=== PATIENT | female | born 1985 | race Caucasian/White ===

== ENCOUNTER 2020-07-20 18:50 | Emergency (ER) | payer OTHER, SELFPAY | END 2020-07-20 19:00 | disposition left against medical advice (07) | DX: Z53.21 Procedure and treatment not carried out due to patient leaving prior to being seen by health care provider (principal) | CPT/HCPCS: 99199 ==

== ENCOUNTER 2023-04-04 14:57 | Emergency (ER) | payer OTHER, SELFPAY ==
--- NOTE | ~2023-04-04 | US_ITS ---
EXAMINATION: US venous doppler LE RT DATE: 04/04/2023 18:35 INDICATION: pain, swelling . TECHNIQUE: Grayscale images without and with compression and Doppler images of the right lower extrem ity veins were obtained. COMPARISON: None FINDINGS: The right common femoral vein, profunda (deep) femoral vein, femoral vein, popliteal vein, peroneal v ein, posterior tibial veins, gastrocnemius vein, and greater saphenous vein are patent. IMPRESSION: Patent right lower extremity veins. No evidence of deep venous thrombosis. Reviewed, dictated and finalized at location K. NT CARE PHYSICIAN
--- NOTE | ~2023-04-04 | XR_ITS ---
EXAMINATION: XR chest 2V 04/04/2023 15:20 INDICATION: Chest pain PROCEDURE: 2 view chest COMPARISON: 10/04/2022 FINDINGS: The lungs are clear. The cardiomediastinal silhouette is within normal limits. There are no pleural effusions. There is no pneumothorax suspected. IMPRESSION: 1: NO ACUTE CARDIOPULMONARY DISEASE. Reviewed, dictated and finalized at location B. NICIAN TERMINAL AND REPEATER
--- NOTE | 2023-04-04 14:58 | ECG_ITS ---
Measurements Intervals [place] Rate: 86 P: 36 AL: 155 QRS: -9 QRSD: 102 T: 59 QT: 345 QTc: 413 Interpretive Statements SINUS RHYTHM NO PREVIOUS ECG AVAILABLE FOR COMPARISON Electronically Signed On 04-04-2023 21:07:[address] CAR INSPECTOR by Patricia Cerrato M.D.
[2023-04-04 15:02] VITALS: BP 146/98; PULSE 98; RESP 18; TEMP 36.9; O2SAT 100
[2023-04-04 15:15] LABS: Basophils Absolute Auto 0.1 K/mm3 (0.0-0.1); Basophils Percent Auto 0.5 % (0.2-1.2); Eosinophils Absolute Auto 0.1 K/mm3 (0-0.3); Eosinophils Percent Auto 1.5 % (0-4.4); Hematocrit 43.5 % (37.0-47.0); Immature Granulocyte Absolute 0.02 K/mm3 (0.00-0.031); Immature Granulocyte Percent A 0.2 % (0-0.5); Lymphocytes Absolute Auto 2.48 K/mm3 (0.9-3.2); Lymphocytes Percent Auto 27.1 % (18.3-44.2); Mean Corpuscular HGB Conc 32.2 g/dl (32-36); Mean Corpuscular Hemoglobin 30.1 pg (26-34); Mean Corpuscular Volume 93.5 fl (80-100); Mean Platelet Volume 9.5 fl (7.4-10.4); Monocytes Absolute Auto 0.5 K/mm3 (0.1-0.6); Monocytes Percent Auto 4.9 % (2.6-8.5); Neutrophils Percent Auto 65.8 % (45.5-73.1); Platelet Count Result 355 k/mm3 (150-375); Red Blood Count 4.65 M/mm3 (4.2-5.4); Red Cell Distribution Width 12.6 % (11.5-14.5); White Blood Count 9.1 K/mm3 (4.5-10.0)
[2023-04-04 15:27] LABS: Prothrombin Time 13.2 Seconds (11.1-14.7)
[2023-04-04 15:28] LABS: Partial Thromboplastin Time 28.4 SECONDS (22.3-36.8)
[2023-04-04 15:33] LABS: Alanine Aminotransferase 26 U/L (6-35); Albumin Level 4.4 g/dL (3.5-5.1); Alkaline Phosphatase 87 U/L (38-126); Anion Gap 6 mmol/L (8-16); Aspartate Amino Transferase 26 U/L (14-36); Bilirubin,Total 0.5 mg/dL (0.2-1.3); Blood Urea Nitrogen 8 mg/dL (7-17); Calcium 9.1 mg/dL (8.4-10.2); Carbon Dioxide 29 mmol/L (22-30); Chloride 104 mmol/L (98-107); Estimated CRCL calculation 158 ml/min; Estimated Glomerular Filt Rate > 60; Glucose 106 mg/dL (65-110); Lipase 137 U/L (23-300); Potassium 3.7 mmol/L (3.4-5.0); Sodium 139 mmol/L (137-145)
[2023-04-04 15:45] LABS: Troponin I < 0.012 ng/mL (0.000-0.034)
--- NOTE | 2023-04-04 17:14 | ED.CHESTPAIN ---
HPI - Chest Pain General Chief Complaint: Chest Pain Stated Complaint: CP/shoulder pain Time Seen by Provider: 04/04/23 16:58 Source: patient Mode of arrival: ambulatory Limitations: no limitations History of Present Illness HPI narrative: Patient is a 37 y/o female, with PMH of PCOS, who presents to the ED with c/o chest pain. 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 Pain radiated down her left arm. She states she then prompted the ED. Pain lasted for approximately 2 hours before improving. She denies current pain. Denies any associated shortness breath, nausea, vomiting, diaphoresis, abdominal pain, pleuritic pain associated with the pain. Denies any recent cough or cold symptoms. She does mention having slight discomfort in R calf for last couple days with mild swelling. Patient does admit to recent increased stress with the holidays and work. Denies history of hypertension, hyperlipidemia, diabetes, family history of heart disease, history of blood clots. Related Data Allergies Allergy/AdvReac Type Severity Reaction Status Date / Time No Known Allergies Allergy Unverified 04/04/23 15:06 Review of Systems Review of Systems: CONSTITUTIONAL: Denies fever, chills, or sweats. ENT: Denies rhinorrhea, congestion, sore throat. CARDIOVASCULAR: See HPI RESPIRATORY: Denies cough or dyspnea. GASTROINTESTINAL: Denies abdominal pain, nausea, vomiting. MUSCULOSKELETAL: See HPI All systems reviewed & are unremarkable except as noted in HPI and below PMFSH Past Medical History Medical History PCOS (polycystic ovarian syndrome) Surgical History Surgical History History of cholecystectomy Hx of tubal ligation Social History Social History Smoking status: Never smoker Exam Narrative: GENERAL: Well appearing, morbidly obese with BMI of 50.2, non-toxic, in no acute distress. HEAD: Normocephalic, atraumatic. RESPIRATORY: Airway patent, respirations nonlabored. Clear to auscultation bilaterally, no rales, rhonchi, wheezing. No pain with inspiration. CARDIOVASCULAR: Regular rate and rhythm without murmurs, rubs, or gallops. ABDOMINAL: Soft, nontender, nondistended. Normoactive BS. MUSCULOSKELETAL: Moves all extremities. No gross deformities. No appreciable swelling throughout lower extremities bilaterally. Mild tenderness in right upper medial calf. Sensation intact. SKIN: Warm, dry, normal color. NEURO: A&O X3. Speech clear. Cranial nerves II-XII grossly intact. No ataxic movements. PSYCHIATRIC: Appropriate mood and affect. Normal interaction. Course Vital Signs Vital signs: Vital Signs Temperature 98.4 F 04/04/23 15:02 Pulse Rate 98 04/04/23 15:02 Respiratory Rate 18 04/04/23 15:02 Blood Pressure 146/98 H 04/04/23 15:02 Pulse Oximetry 100 04/04/23 15:02 Oxygen Delivery Room Air 04/04/23 15:02 Temperature 98.4 F 04/04/23 15:02 Pulse Rate 75 04/04/23 18:00 Respiratory Rate 18 04/04/23 18:00 Blood Pressure 145/97 H 04/04/23 18:00 Pulse Oximetry 98 04/04/23 18:00 Oxygen Delivery Room Air 04/04/23 15:02 MDM - Chest Pain MDM Narrative Medical decision making narrative: Patient presents to ED with 2 hour history of chest pain. Resolved by the time of my evaluation. Vitals stable upon my evaluation. Patient stating she has looked up her results on the patient portal and is ready to go home. EKG without concerning ischemic changes. Baseline troponin negative. CXR clear. Remainder of basic laboratory studies reassuring. Discussed these results with patient, discussed obtaining 3HR troponin to more definitively r/o cardiac etiology.
--- NOTE | 2023-04-04 17:51 | ECG_ITS ---
Measurements Intervals [place] Rate: 71 P: 37 [place]: 160 QRS: 11 QRSD: 109 T: 74 QT: 393 QTc: 428 Interpretive Statements SINUS RHYTHM LOW QRS VOLTAGE IN PRECORDIAL LEADS [QRS DEFLECTION < 1.0 mV IN CHEST LEADS] NONSPECIFIC T-WAVE ABNORMALITY COMPARED TO ECG 04/04/2023 15:02:52 NO SIGNIFICANT CHANGES Electronically Signed On 04-04-2023 21:12:34 CHEMISTRY TECHNICAL OFFICER by Patricia Cerrato M.D.
[2023-04-04 18:00] VITALS: BP 145/97; PULSE 75; RESP 18; O2SAT 98
[2023-04-04 18:20] LABS: Troponin I < 0.012 ng/mL (0.000-0.034)
== END 2023-04-04 19:29 | disposition home or self-care (01) ==
PROVIDERS: Emergency Medicine; Emergency Provider Physician Assistant
DX: R07.89 Other chest pain (principal)
CPT/HCPCS: 36415; 71046; 80053; 83690; 84484; 85025; 85610; 85730; 93005; 93971; 99284